=== PATIENT | male | born 1995 | race Caucasian/White ===

== ENCOUNTER 2017-05-30 12:45 | Emergency (ER) | payer OTHER ==
[2017-05-30] MEDS ORDERED: IBUPROFEN 600 MG TAB PO ONE ×2 (13:17→13:31)
[2017-05-30] MEDS ORDERED: NS 2,000 ML IV ONE (13:31)
--- NOTE | 2017-05-30 13:38 | EDPHY ---
H & P Time Seen by Provider: 05/30/17 13:36 HPI/ROS: CHIEF COMPLAINT: Fever, vomiting HISTORY OF PRESENT ILLNESS: The patient is a 21 y/o male complaining of nausea, headache, sore throat, congestion, and sweats onset yesterday. He woke up yesterday and his sheets were wet from sweating. Associated with sore throat, nasal congestion and a mild headache. Took ibuprofen which relieved his symptoms. 1 episode of vomiting yesterday, no nausea now. This morning he had a fever of 103.5 degrees. Took cold medicine without relief of symptoms. Associated with a moderate headache. Denies chest pain, shortness of breath, diarrhea, abdominal pain, urinary complaints, extremity pain. REVIEW OF SYSTEMS: Aside from elements discussed in the HPI, a comprehensive 10-point review of systems was reviewed and is negative. Past Medical/Surgical History: Denies Social History: Visiting [place] from [place], friend at [facility] Smoking Status: Never smoked Physical Exam: General Appearance: Alert, non-toxic, pleasant Eyes: Pupils equal and round, no conjunctival pallor or injection ENT, Mouth: Mucous membranes moist, Pharyngeal erythema with tonsillar edema and exudates Neck: Normal inspection Respiratory: Lungs are clear to auscultation Cardiovascular: Irregular tachycardia Gastrointestinal: Abdomen is soft and non-tender Neurological: A&O, nonfocal Skin: Warm and dry, no rash Extremities: Normal inspection Psychiatric: Mood and affect normal Constitutional: Initial Vital Signs Temperature (C) 38.8 C H 05/30/17 12:48 Heart Rate 124 H 05/30/17 12:48 Respiratory Rate 18 05/30/17 12:48 Blood Pressure 123/72 H 05/30/17 12:48 O2 Sat (%) 94 05/30/17 12:48 O2 Delivery Mode Room Air Allergies/Adverse Reactions: No Known Allergies Allergy (Unverified 05/30/17 12:47) Home Medications: Medication Instructions Recorded Ondansetron Odt [Zofran Odt 4 mg 4 mg PO Q4 PRN #6 tab 05/30/17 (*)] Medical Decision Making ED Course/Re-evaluation: This is a well-appearing male who presents with fever and URI symptoms. 2L IV NS , 6mg IV Decadron, and 600mg PO Motrin administered. 1435: Reassessed patient and discussed laboratory findings. Negative strep, mono spot and influenza. Headache has almost completely resolved, feels much better overall. Will DC home. Return precautions provided; patient is comfortable with this plan. Differential Diagnosis: Differential diagnosis includes but is not limited to pneumonia, otitis media, peritonsillar abscess, retropharyngeal abscess, meningitis. - Data Points Medications Given: Discontinued Medications Dexamethasone (Decadron Injection) 6 mg IVP EDNOW ONE Stop: 05/30/17 13:46 Last Admin: 05/30/17 14:06 Dose: 6 mg Sodium Chloride (Ns) 2,000 mls @ 0 mls/hr IV ONCE ONE PRN Reason: Wide Open Stop: 05/30/17 13:32 Last Admin: 05/30/17 13:32 Dose: 2,000 mls Ibuprofen (Motrin) 600 mg PO EDNOW ONE Stop: 05/30/17 13:32 Last Admin: 05/30/17 13:32 Dose: 600 mg Departure - Departure Disposition: Home, Routine, Self-Care Clinical Impression: Viral syndrome Fever Qualifiers: Fever type: due to other condition Qualified Code(s): R50.81 - Fever presenting with conditions classified elsewhere Condition: Good Instructions: Fever in Adults (ED), Viral Syndrome (ED) Additional Instructions: Ibuprofen 600 mg 3 times daily while the fever persists. Drink plenty of fluids. You do not have the flu. Referrals: KAPIL SAWANT [Other] - As per Instructions Prescriptions: Ondansetron Odt [Zofran Odt 4 mg (*)] 4 mg PO Q4 PRN #6 tab PRN Reason: Nausea Report Scribed for: Maria Ines Phillips Report Scribed by: Sheri Zhang Date of Report: 05/30/17 Time of Report: 13:37 Physician Review and Approval Statement: 05/30/17 14:36 Portions of this note were transcribed by a medical anthropologist. I personally performed a history, physical exam, medical decision making, and confirmed accuracy of information the transcribed note.
[2017-05-30] MEDS ORDERED: DEXAMETHASONE 4 MG/ML VIAL IVP ONE (13:45)
[2017-05-30 13:57] VITALS: RESP 16; O2SAT 95
[2017-05-30 14:10] VITALS: BP 92/84; PULSE 97; TEMP 98.8
== END 2017-05-30 14:53 | disposition home or self-care (01) ==
DX: B34.9 Viral infection, unspecified (principal); R50.9 Fever, unspecified; R11.10 Vomiting, unspecified
CPT/HCPCS: 96374; J1100